=== PATIENT | female | born 1980 | race Caucasian/White ===

== ENCOUNTER 2022-02-03 17:00 | Emergency (ER) | payer BC, SELFPAY ==
[~2022-02-03] VITALS: Ht 170.2 cm; Wt 112.0 kg
[2022-02-03] MEDS ORDERED: ASPIRIN 81 MG CHEW TABLET PO ONE (17:40)
[2022-02-03 18:00] LABS: HEMATOCRIT 37.5 % (36.0-47.0); HEMOGLOBIN 12.7 g/dl (12.0-15.5); MEAN CORPUSCULAR HEMOGLOBIN 32.3 pg (27.0-33.0); MEAN CORPUSCULAR HGB CONC 33.9 g/dl (32.0-36.5); MEAN CORPUSCULAR VOLUME 95.4 fl (80.0-96.0); PLATELET COUNT, AUTOMATED 246 10^3/uL (150-450); RED BLOOD COUNT 3.93 10^6/uL (4.00-5.40); WHITE BLOOD COUNT 6.3 10^3/uL (4.0-10.0)
[2022-02-03 18:13] LABS: INR 0.97; PROTHROMBIN TIME 13.3 SECONDS (12.7-14.5)
[2022-02-03 18:14] LABS: PARTIAL THROMBOPLASTIN TIME 34.9 SECONDS (25.9-37.0)
[2022-02-03 18:29] LABS: HCG, SERUM QUALITATIVE NEGATIVE (NEGATIVE)
[2022-02-03 18:34] LABS: CK-MB VALUE MASS 7.6 NG/ML (<3.6); CPK CREATINE PHOSPHOKINASE 171 U/L (26-192); MB/CK RELATIVE INDEX 4.44 (< OR =4)
[2022-02-03 18:40] LABS: ALBUMIN 3.4 GM/DL (3.2-5.2); ALT/SGPT 21 U/L (12-78); BILIRUBIN,DIRECT < 0.1 MG/DL (0.0-0.2); BILIRUBIN,TOTAL 0.2 MG/DL (0.2-1.0); BLOOD UREA NITROGEN 13 MG/DL (7-18); CALCIUM LEVEL 8.5 MG/DL (8.5-10.1); CARBON DIOXIDE LEVEL 26 MEQ/L (21-32); CHLORIDE LEVEL 107 MEQ/L (98-107); CREATININE FOR GFR 0.84 MG/DL (0.55-1.30); FREE T4 0.95 NG/DL (0.76-1.46); GLOMERULAR FILTRATION RATE > 60.0 (>58); GLUCOSE, FASTING 117 MG/DL (70-100); LIPASE 121 U/L (73-393); POTASSIUM SERUM 3.8 MEQ/L (3.5-5.1); SODIUM LEVEL 141 MEQ/L (136-145); TOTAL PROTEIN 6.5 GM/DL (6.4-8.2)
[2022-02-03 18:45] LABS: ATYPICAL LYMPH 6 % (0-5); BASOPHILS 3 % (0-1); EOSINOPHILS 4 % (0-3); LYMPHOCYTES 28 % (16-44); MONOCYTES 2 % (0-5); NEUTROPHILS 56 % (28-66); PLATELET ESTIMATE NORMAL (NORMAL)
[2022-02-03] MEDS ORDERED: ISOVUE-370 76% 100ML VIAL As Ordered ONE (18:55)
[2022-02-03 19:29] LABS: CK-MB VALUE MASS 6.9 NG/ML (<3.6); CPK CREATINE PHOSPHOKINASE 154 U/L (26-192); MB/CK RELATIVE INDEX 4.48 (< OR =4)
[2022-02-03] MEDS ORDERED: AMLO1TAB24 PO (19:59)
[2022-02-03 20:00] VITALS: BP 171/81
== END 2022-02-03 20:29 | disposition home or self-care (01) ==
LOC: M ED 17:00
DX: R07.9 Chest pain, unspecified (principal); R91.8 Other nonspecific abnormal finding of lung field; I10 Essential (primary) hypertension; Z91.040 Latex allergy status
CPT/HCPCS: 36415; 71045; 71275; 80048; 80076; 82550; 82553; 83690; 84439; 84443; 84484; 84703; 85025; 85610; 85730; 93005; 93041; 94760; 99285; Q9967